=== PATIENT | male | born 2000 | race Caucasian/White ===

== ENCOUNTER → 2020-05-14 | Outpatient (CLI) | payer OTHER | LOC: ZCOL.LAB 16:22 | DX: Z20.828 Contact with and (suspected) exposure to other viral communicable diseases (principal) ==

== ENCOUNTER → 2021-04-12 | Outpatient (CLI) | payer OTHER | LOC: COL.RAD 13:00 | DX: E05.90 Thyrotoxicosis, unspecified without thyrotoxic crisis or storm (principal); R07.9 Chest pain, unspecified | CPT/HCPCS: A9516 ==

== ENCOUNTER 2021-06-03 13:27 | Emergency (ER) | payer OTHER ==
[~2021-06-03] VITALS: Ht 182.9 cm; Wt 90.9 kg
[2021-06-03 13:31] VITALS: TEMP 98
[2021-06-03 14:50] VITALS: BP 130/70; PULSE 80
== END 2021-06-03 17:55 | disposition home or self-care (01) ==
LOC: COL.ER 13:27
DX: T78.1XXA Other adverse food reactions, not elsewhere classified, initial encounter (principal); Z91.010 Allergy to peanuts
CPT/HCPCS: J0171; J2930; J7030